=== PATIENT | female | born 1930 | race Caucasian/White ===

== ENCOUNTER 2019-05-22 09:35 | Observation (INO) | payer MEDICARE, BC ==
[2019-05-22] MEDS ORDERED: 1/2 NORMAL SALINE 1,000 ML IV ONE (10:00)
--- NOTE | 2019-05-22 10:07 | ER Document Report ---
ED Fall - General Chief Complaint: Fall Injury Stated Complaint: FALL Time Seen by Provider: 05/22/19 09:42 Notes: Patient found by her bed on the floor this morning. Family did not hear her fall, but thinks that is what happened because she is had about 3 falls over the past couple of weeks. Her only apparent injury from this episode is a very small cut to the lower lip. It does not require sutures. Family is concerned the patient may be dehydrated. Says her oral intake has been very poor lately. The patient has not been sick in any specific way recently. Patient had skin cancer removed from her left nose a couple of weeks ago leaving her with some bruising of her face. However, family notes slight redness in the right maxill bernardo region that is new. She had a fall a couple of weeks ago when she hit her right lower rib cage and has a hematoma in the right flank region that extends around towards the front of the right abdomen. Patient has a history of atrial fibrillation and is currently on Eliquis. Bedside monitoring currently shows sinus rhythm, not atrial fibrillation, with frequent PVCs. Patient has a chronic right knee problem for which she saw her primary care earlier in the week. They drained some fluid out of her knee and put some cortisone in the knee. Family says that the patient needs to have a total knee replacement, but they have been putting it off. TRAVEL OUTSIDE OF THE [place] 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 Son and daughter are here with the patient and provide ample historical review. CONSTITUTIONAL : Denies fever. EENT: Denies eye, ear, nose or mouth or throat pain or other symptoms. CARDIOVASCULAR: Denies chest pain. RESPIRATORY: Denies cough, chest congestion, or shortness of breath. GASTROINTESTINAL: Denies abdominal pain or nausea, vomiting, or diarrhea. GENITOURINARY: Denies difficulty or painful urinating, urinary frequency, blood in urine. MUSCULOSKELETAL: Denies back or neck pain. Right knee has small effusion palpable. Otherwise, denies joint pain or swelling. SKIN: Denies rash or skin lesions. Bruise from where she fell and hit the right lower flank region a couple of weeks ago. NEUROLOGICAL: See HPI. Denies headache. ALL OTHER SYSTEMS REVIEWED AND NEGATIVE. Physical Exam - Vital signs Vitals: Temp Resp 97.9 F 13 05/22/19 09:47 05/22/19 09:47 Interpretation: Normal Notes: PHYSICAL EXAMINATION: GENERAL: Well-appearing, in no acute distress. HEAD: Atraumatic, normocephalic. Has a small cut of the lower lip with a corresponding cut inside the lip. I am not sure if they communicate or just happened to be on either side of the lip. Not big enough to suture. EYES: Pupils equal round and reactive to light, extraocular movements intact. Faint dark bruise of the lateral aspect of the right eyebrow. Patient has some soft tissue swelling in the maxillary regions which the daughter says are secondary to where she had skin cancer removed a couple weeks ago. ENT: oropharynx clear without exudates. Moist mucous membranes. NECK: Normal range of motion, supple. LUNGS: Breath sounds clear and equal bilaterally. HEART: Regular rate and rhythm without murmurs. ABDOMEN: Soft, nontender. No guarding or rebound. No masses. BACK: No tenderness throughout entire back. Patient has a large (5 cm x 5 cm) firm hematoma in the right flank region with some discoloration of bruising extending in a linear fashion from the right flank to the right front of the abdomen. EXTREMITIES: Patient has a small palpable effusion of the right knee. It is not hot or red or anything suggesting infection. There is a tiny blue spot in the medial aspect of the right knee where patient may have had a needle aspiration and medications given. Otherwise, normal range of motion of joints without pain. NEUROLOGICAL: acts sleepy, but when she is awake, she seems to have normal speech. Patient is unable to walk, too sleepy and swollen right knee that is painful. Otherwise, grossly normal neurologic exam without deficits. PSYCH: Too somnolent to examine. SKIN: Warm, dry, no rashes. Right lower daniels where patient had a lesion that was irradiated and daughter says it was squamous cell cancer. Course - Re-evaluation Re-evalutation: 05/22/19 14:27 Work-up essentially negative. I do not know if this patient is having syncopal episodes, because this 1 this morning was not witnessed, or if she could be having falling episodes. Her EKG shows a sinus rhythm at this time with some frequent PVCs, and pairs and triplets. Patient does not have any evidence of an infectious process. I have spoken with the hospitalist to admit this patient for observation and she will be admitted to telemetry. - Vital Signs Vital signs: Temp Pulse Resp BP Pulse Ox 97.9 F 62 20 172/81 H 97 05/22/19 09:47 05/22/19 11:49 05/22/19 11:49 05/22/19 11:49 05/22/19 11:49 - Laboratory Result Diagrams: 05/22/19 10:56 05/22/19 10:56 Laboratory results interpreted by me: 05/22/19 05/22/19 05/22/19 10:13 10:56 10:56 Hgb 11.0 L Hct 34.7 L MCHC 31.7 L RDW 16.0 H Carbon Dioxide 32 H Anion Gap 3 L BUN 31 H Est GFR ( Amer) 52 L Est GFR (MDRD) Non-Af 43 L Total Protein 5.9 L Albumin 3.4 L Urine Blood SMALL H - Diagnostic Test Radiology reviewed: Image reviewed, Reports reviewed - CT head without any acute findings. No evidence of stroke. - EKG Interpretation by Me EKG shows normal: Sinus rhythm Rate: Normal Rhythm: PVC's Critical Care Note - Critical Care Note Total time excluding time spent on procedures (mins): 35 Discharge - Discharge Clinical Impression: Dementia, Fall, Syncope Condition: Stable Disposition: ADMITTED OBSERVATION Admitting Provider: day Unit Admitted: Telemetry
[2019-05-22 10:42] LABS: APPEARANCE,URINE CLEAR; BILIRUBIN,URINE NEGATIVE (NEGATIVE); COLOR,URINE YELLOW; GLUCOSE, URINE NEGATIVE (NEGATIVE); KETONES,URINE NEGATIVE (NEGATIVE); LEUKOCYTE ESTERASE,URINE NEGATIVE (NEGATIVE); NITRITE,URINE NEGATIVE (NEGATIVE); PROTEIN,URINE NEGATIVE (NEGATIVE); URINE SPECIFIC GRAVITY 1.014; UROBILINOGEN,URINE NEGATIVE mg/dL (<2.0)
--- NOTE | 2019-05-22 10:53 | RADIOLOGY REPORT (SQ) ---
EXAM DESCRIPTION: CT HEAD WITHOUT COMPLETED DATE/TIME: 05/22/2019 10:41 am REASON FOR STUDY: dementia, worsening mental statuw, fall COMPARISON: None. TECHNIQUE: Axial images acquired through the brain without intravenous contrast. Images reviewed wi th bone, brain and subdural windows. Additional sagittal and coronal reconstructions were generated. Images stored on PACS. All CT scanners at this facility use dose modulation, iterative reconstruction, and/or weight based d osing when appropriate to reduce radiation dose to as low as reasonably achievable (ALARA). [facility]: Dose Right [facility]: CareDose [facility]: Dose Right [facility]: Teradose 4D [facility]: Smart [employer] RADIATION DOSE: CT Rad equipment meets quality standard of care and radiation dose reduction techniq ues were employed. CTDIvol: 53.2 mGy. DLP: 1582 mGy-cm. mGy. LIMITATIONS: None. FINDINGS: VENTRICLES: Normal size and contour. CEREBRUM: No masses. No hemorrhage. No midline shift. No evidence for acute infarction. Few scatte red areas of low density in the white matter most likely chronic small vessel ischemic changes. CEREBELLUM: No masses. No hemorrhage. No alteration of density. No evidence for acute infarction. EXTRAAXIAL SPACES: No fluid collections. No masses. ORBITS AND GLOBE: No intra- or extraconal masses. Normal contour of globe without masses. CALVARIUM: No fracture. PARANASAL SINUSES: No fluid or mucosal thickening. SOFT TISSUES: No mass or hematoma. OTHER: No other significant finding. IMPRESSION: No acute intracranial pathology. EVIDENCE OF ACUTE STROKE: NO. COMMENT: Quality ID # [id number]: Final reports with documentation of one or more dose reduction techniques (e.g., Automated exposure control, adjustment of the mA and/or kV according to patient size, use of iterative reconstruction technique) TECHNICAL DOCUMENTATION: JOB ID: [id number] [employer]- All Rights Reserved Reading location - IP/workstation name: [email or web address]
[2019-05-22 11:12] LABS: ABSOLUTE BASOPHILS # (AUTO) 0.1 10^3/uL (0.0-0.2); ABSOLUTE EOSINOPHILS # (AUTO) 0.1 10^3/uL (0.0-0.6); ABSOLUTE LYMPHOCYTES (AUTO) 2.3 10^3/uL (0.5-4.7); ABSOLUTE MONOCYTES (AUTO) 0.8 10^3/uL (0.1-1.4); ABSOLUTE NEUT (AUTO) 5.6 10^3/uL (1.7-8.2); BASOPHILS % (AUTO) 0.7 % (0-2); EOSINOPHILS % (AUTO) 1.1 % (0-6); HEMATOCRIT 34.7 % (36.0-47.0); LYMPHOCYTES % (AUTO) 26.2 % (13-45); MEAN CORPUSCULAR HEMOGLOBIN 27.6 pg (27.0-33.4); MEAN CORPUSCULAR HGB CONC 31.7 g/dL (32.0-36.0); MEAN CORPUSCULAR VOLUME 87 fl (80-97); MONOCYTES % (AUTO) 8.8 % (3-13); PLATELET COUNT 199 10^3/uL (150-450); RED BLOOD COUNT 3.98 10^6/uL (3.72-5.28); SEGMENTED NEUTROPHILS % (AUTO) 63.2 % (42-78); TOTAL CELLS COUNTED % (AUTO) 100 %; WHITE BLOOD COUNT 8.9 10^3/uL (4.0-10.5)
[2019-05-22 11:27] LABS: INTERNATIONAL RATION (INR) 1.05; PROTHROMBIN TIME 13.7 SEC (11.4-15.4)
[2019-05-22 11:33] LABS: ALBUMIN 3.4 g/dL (3.5-5.0); ALKALINE PHOSPHATASE 80 U/L (38-126); ASPARTATE AMINO TRANSFERASE 22 U/L (14-36); BILIRUBIN,DIRECT 0.2 mg/dL (0.0-0.4); BILIRUBIN,TOTAL 0.3 mg/dL (0.2-1.3); BLOOD UREA NITROGEN 31 mg/dL (7-20); CALCIUM 8.6 mg/dL (8.4-10.2); CARBON DIOXIDE 32 mmol/L (22-30); CHLORIDE 105 mmol/L (98-107); GLUCOSE 86 mg/dL (75-110); POTASSIUM 4.6 mmol/L (3.6-5.0); TOTAL PROTEIN 5.9 g/dL (6.3-8.2)
[2019-05-22 11:40] LABS: ANION GAP 3 (5-19)
--- NOTE | 2019-05-22 13:39 | EKG REPORT ---
SEVERITY:- ABNORMAL ECG - SINUS RHYTHM PAIRED VENTRICULAR PREMATURE COMPLEXES : Confirmed by: Tierra Abrams MD 22-May-2019 13:38:53
[2019-05-22] MEDS ORDERED: ONDANSETRON 4 MG TAB.RAPDIS PO PRN (13:44)
[2019-05-22] MEDS ORDERED: ACETAMINOPHEN 325 MG TABLET PO PRN (13:44)
[2019-05-22] MEDS ORDERED: ONDANSETRON HCL INJ/PF 4 MG/2 ML SDV IV PRN (13:44)
[2019-05-22] MEDS: NORMAL SALINE 1000 ML 1,000 ML IV PRN (14:09)
--- NOTE | 2019-05-22 14:44 | PDOC H&P ---
History of Present Illness Admission Date/PCP: 05/22/19 13:05 History of Present Illness: NOAM SINGH is a 88 year old female who was seen in the emergency room frequent falls and syncope. Complete history is given by the daughter who is in the room patient reportedly fell yesterday morning while in the shower, and then fell again this morning while getting out of bed. According to the daughter her mother reached over to get something off the coffee table or the nightstand and she fell out of bed. Evidently the patient has been falling more often in the last 6 months and especially in the last few weeks. The daughter states that last night the patient was talking to herself for about an hour, and evidently having some sort of hallucinations. That may be due to medications as on Saturday she got a steroid injection into her knee last night also took some Benadryl. Patient has been living with her daughter for 2 years now. Patient does have a history of dementia in the past however family is concerned that she is falling more frequently now. 2 weeks ago she fell and hit her right lower back and has a large hematoma from that fall patient is on Eliquis as a result of atrial fib. When I spoke to the patient in the emergency room she was confused she thought she was in another town in [place] she thought she was at her parents house and she thought her daughter was her sister. 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 Past Surgical History Past Surgical History: Reports: Orthopedic Surgery - back Social History Smoking Status: Unknown if Ever Smoked Electronic Cigarette use?: No - Advance Directive Resuscitation Status: Do Not Resuscitate Family History Family History: Reviewed & Not Pertinent Parental Family History Reviewed: No Children Family History Reviewed: No Sibling(s) Family History Reviewed.: No Medication/Allergy Home Medications: Walker [Folding Walker] 1 each MC ASDIR PRN #1 each 05/19/15 Allergies/Adverse Reactions: No Known Allergies Allergy (Verified 05/18/15 22:01) Review of Systems Constitutional: ABSENT: chills, fever(s), headache(s), weight gain, weight loss Cardiovascular: ABSENT: chest pain, dyspnea on exertion, edema, orthropnea, palpitations Respiratory: ABSENT: cough, hemoptysis Gastrointestinal: ABSENT: abdominal pain, constipation, diarrhea, hematemesis, hematochezia, nausea, vomiting Neurological: PRESENT: confusion, memory loss, weakness, other - Current falls Psychiatric: ABSENT: anxiety, depression, homidical ideation, suicidal ideation Physical Exam Vital Signs: Temp Pulse Resp BP Pulse Ox 97.9 F 62 20 172/81 H 97 05/22/19 09:47 05/22/19 11:49 05/22/19 11:49 05/22/19 11:49 05/22/19 11:49 Intake & Output 05/21/19 05/22/19 05/23/19 06:59 06:59 06:59 Intake Total 1000 Balance 1000 Weight 66.81 kg General appearance: PRESENT: no acute distress, other - Patient is sleeping but arouses with loud voices patient is very confused does not know where she is or who we are. Patient does not recognize her daughter Mouth exam: PRESENT: other - She has a small puncture wound to her lower lip secondary to her fall Respiratory exam: PRESENT: clear to auscultation brandon. ABSENT: rales, rhonchi, wheezes Cardiovascular exam: PRESENT: RRR. ABSENT: diastolic murmur, rubs, systolic murmur Neurological exam: PRESENT: altered, other - Patient is not oriented to person place or time Psychiatric exam: PRESENT: appropriate affect, normal mood, other - Patient is pleasant when she wakes up however confused. ABSENT: homicidal ideation, suicidal ideation Skin exam: PRESENT: other - All abrasion to the lower lip Results Laboratory Results: 05/22/19 10:56 05/22/19 10:56 05/22/19 05/22/19 05/22/19 09:15 09:15 10:13 WBC Cancelled RBC Cancelled Hgb Cancelled Hct Cancelled MCV Cancelled MCH Cancelled MCHC Cancelled RDW Cancelled Plt Count Cancelled Seg Neutrophils % Cancelled Sodium Cancelled Potassium Cancelled Chloride Cancelled Carbon Dioxide Cancelled Anion Gap Cancelled BUN Cancelled Creatinine Cancelled Est GFR ( Amer) Cancelled Est GFR (Non-Af Amer) Cancelled Glucose Cancelled Calcium Cancelled Total Bilirubin Cancelled AST Cancelled Alkaline Phosphatase Cancelled Total Protein Cancelled Albumin Cancelled Urine Color YELLOW Urine Appearance CLEAR Urine pH 5.0 Ur Specific [place] 1.014 Urine Protein NEGATIVE Urine Glucose (UA) NEGATIVE Urine Ketones NEGATIVE Urine Blood SMALL H Urine Nitrite NEGATIVE Ur Leukocyte Esterase NEGATIVE Urine WBC (Auto) 1 Urine RBC (Auto) 8 05/22/19 05/22/19 10:56 10:56 WBC 8.9 RBC 3.98 Hgb 11.0 L Hct 34.7 L MCV 87 MCH 27.6 MCHC 31.7 L RDW 16.0 H Plt Count 199 Seg Neutrophils % 63.2 Sodium 140.1 Potassium 4.6 Chloride 105 Carbon Dioxide 32 H Anion Gap 3 L BUN 31 H Creatinine 1.18 Est GFR ( Amer) 52 L Est GFR (Non-Af Amer) Glucose 86 Calcium 8.6 Total Bilirubin 0.3 AST 22 Alkaline Phosphatase 80 Total Protein 5.9 L Albumin 3.4 L Urine Color Urine Appearance Urine pH Ur Specific [place] Urine Protein Urine Glucose (UA) Urine Ketones Urine Blood Urine Nitrite Ur Leukocyte Esterase Urine WBC (Auto) Urine RBC (Auto) 05/22/19 05/22/19 09:15 10:56 Troponin I Cancelled < 0.012 Impressions: Head CT 05/22/19 10:05 IMPRESSION: No acute intracranial pathology. EVIDENCE OF ACUTE STROKE: NO. Assessment and Plan - Diagnosis (1) Dementia Is this a current diagnosis for this admission?: Yes (2) Fall Is this a current diagnosis for this admission?: Yes (3) Syncope Is this a current diagnosis for this admission?: Yes (4) PVCs (premature ventricular contractions) Is this a current diagnosis for this admission?: Yes (5) Atrial fibrillation Is this a current diagnosis for this admission?: No - Plan Summary Summary: 05/22/2019 I have explained to the daughter that we may not be able to make a diagnosis as to why her mother is falling. To me it sounds to be an aging problem or microvascular ischemia dementia type problem. We will put her on telemetry and monitor her rhythm. Lab work.. Treat the patient well.. I think the behavior last night today as far as confusion is secondary to the steroids and the Benadryl, hopefully that will wear off some of the next 48 hours. Patient might benefit from an MRI and MRA of the brain as an outpatient. CT scan of the head shows no hydrocephalus or acute intracranial disease, urine is clear showing no signs of infection. Chest x-ray was not done in the ER so I will order a portable chest. Patient is a DNR. - Time Time Spent with patient: 35 or more minutes
--- NOTE | 2019-05-22 16:08 | RADIOLOGY REPORT (SQ) ---
EXAM DESCRIPTION: CHEST SINGLE VIEW COMPLETED DATE/TIME: 05/22/2019 3:57 pm REASON FOR STUDY: altered mental status COMPARISON: None. EXAM PARAMETERS: NUMBER OF VIEWS: One view. TECHNIQUE: Single frontal radiographic view of the chest acquired. RADIATION DOSE: NA LIMITATIONS: None. FINDINGS: LUNGS AND PLEURA: No opacities, masses or pneumothorax. No pleural effusion. MEDIASTINUM AND HILAR STRUCTURES: No masses. Contour normal. HEART AND VASCULAR STRUCTURES: Borderline enlarged cardiac silhouette. Aortic atherosclerosis. BONES: No acute findings. Degenerative changes at the shoulders. HARDWARE: None in the chest. OTHER: No other significant finding. IMPRESSION: No evidence of acute cardiopulmonary process. TECHNICAL DOCUMENTATION: JOB ID: [id number] [employer]- All Rights Reserved Reading location - IP/workstation name: [email or web address]
[2019-05-22] MEDS ORDERED: FAMOTIDINE 20 MG TABLET PO SCH (22:00)
[2019-05-22] MEDS ORDERED: (PENDING PHARMACY ID) (Diclofenac Sodium [Voltaren] 1 GM) TOP PRN (22:17)
[2019-05-22] MEDS ORDERED: MELATONIN 3 MG TABLET PO PRN (22:17)
[2019-05-22] MEDS ORDERED: DOFETILIDE 125 MCG CAPSULE ONE (22:56)
[2019-05-22] MEDS ORDERED: GALANTAMINE HBR 4 MG TABLET ONE (22:56)
[2019-05-22] MEDS: GALANTAMINE HBR 4 MG TABLET PO SCH (22:59)
[2019-05-22] MEDS: APIXABAN 2.5 MG TABLET PO SCH (22:59)
[2019-05-22] MEDS: DOFETILIDE 125 MCG CAPSULE PO SCH (22:59)
[2019-05-22] MEDS: FAMOTIDINE 20 MG TABLET PO SCH (23:00)
[2019-05-23] MEDS: OXYCODONE HCL IR 5 MG TABLET PO SCH ×5 (00:52→23:43)
[2019-05-23] MEDS: GABAPENTIN 300 MG CAPSULE PO SCH ×5 (00:52→23:43)
[2019-05-23] MEDS: METRONIDAZOLE 500 MG/NS RTU 500 MG/100 ML RTUPB IV SCH ×5 (00:55→23:44)
[2019-05-23] MEDS: HYDRALAZINE HCL INJ/PF 20 MG/1 ML SDV IV PRN ×2 (01:27→05:42)
[2019-05-23] MEDS: PANTOPRAZOLE SODIUM 40 MG TABLET.DR PO SCH ×2 (05:42→18:33)
[2019-05-23 06:48] LABS: ABSOLUTE BASOPHILS # (AUTO) 0.1 10^3/uL (0.0-0.2); ABSOLUTE EOSINOPHILS # (AUTO) 0.1 10^3/uL (0.0-0.6); ABSOLUTE LYMPHOCYTES (AUTO) 3.6 10^3/uL (0.5-4.7); ABSOLUTE NEUT (AUTO) 7.4 10^3/uL (1.7-8.2); EOSINOPHILS % (AUTO) 1.2 % (0-6); HEMATOCRIT 35.4 % (36.0-47.0); HEMOGLOBIN 11.3 g/dL (12.0-15.5); LYMPHOCYTES % (AUTO) 29.2 % (13-45); MEAN CORPUSCULAR HEMOGLOBIN 27.1 pg (27.0-33.4); MEAN CORPUSCULAR HGB CONC 31.9 g/dL (32.0-36.0); MEAN CORPUSCULAR VOLUME 85 fl (80-97); MONOCYTES % (AUTO) 8.2 % (3-13); PLATELET COUNT 200 10^3/uL (150-450); RED BLOOD COUNT 4.16 10^6/uL (3.72-5.28); RED CELL DISTRIBUTION WIDTH 15.6 % (11.5-14.0); SEGMENTED NEUTROPHILS % (AUTO) 60.4 % (42-78); TOTAL CELLS COUNTED % (AUTO) 100 %; WHITE BLOOD COUNT 12.3 10^3/uL (4.0-10.5)
[2019-05-23 07:16] LABS: ANION GAP 6 (5-19); BLOOD UREA NITROGEN 22 mg/dL (7-20); CALCIUM 8.8 mg/dL (8.4-10.2); CARBON DIOXIDE 30 mmol/L (22-30); CHLORIDE 102 mmol/L (98-107); GLUCOSE 98 mg/dL (75-110); POTASSIUM 4.4 mmol/L (3.6-5.0)
[2019-05-23] MEDS ORDERED: MORPHINE SULFATE 10 MG/ML INJ IV PRN (07:57)
[2019-05-23] MEDS ORDERED: DILTIAZEM HCL INJ 25 MG/5 ML VIAL ONE (08:24)
[2019-05-23] MEDS ORDERED: DILTIAZEM HCL INJ 25 MG/5 ML VIAL IV ONE (09:00)
[2019-05-23] MEDS: DOCUSATE SODIUM 100 MG CAPSULE PO SCH (09:31)
[2019-05-23] MEDS: DULOXETINE HCL 30 MG CAPSULE.DR PO SCH (09:31)
[2019-05-23] MEDS: APIXABAN 2.5 MG TABLET PO SCH ×2 (09:31→21:16)
[2019-05-23] MEDS: METOPROLOL SUCCINATE 25 MG TAB.SR.24H PO SCH (09:31)
--- NOTE | 2019-05-23 09:47 | PDOC PROGRESS REPORT ---
Subjective Progress Note for:: 05/23/19 Subjective:: 05/23/2019 evidently last night the family changed her from a DNR to full code, however they are unsure what her status should be. I talked him about quality of life and so forth, chronic pain, etc.. We will keep her out of full code for now She has become more tachycardic's morning up into the 150s, with multiple PVCs or V. tach. Patient has a past medical history of atrial fib and is followed by Dr. Santoro. Actually this morning her heart rate was in the mid 60s and low 90s. Cardiology we will see the patient for this complaint Throughout the family thinks now that the patient has been taking Percocet without them knowing it. Now wonder if this is why she is falling so much. She is been on pain medicine for multiple years currently oxycodone 15 mg every 6 hours, and evidently she has some Percocet as well. We will continue the work-up for syncope. I x-rayed her pelvis and hips at the request of the family because they think that she may have fractured on with her falls. Reason For Visit: DEMENTIA,FALL,SYNCOPE Physical Exam Vital Signs: Temp Pulse Resp BP Pulse Ox 98.1 F 94 18 148/76 H 100 05/23/19 07:26 05/23/19 07:26 05/23/19 07:26 05/23/19 07:26 05/23/19 07:26 Intake & Output 05/22/19 05/23/19 05/24/19 06:59 06:59 06:59 Intake Total 1200 Output Total 1875 Balance -675 Weight 72.8 kg General appearance: PRESENT: mild distress, other - Patient is moaning out in pain complaining of right hip pain, and then she falls asleep Respiratory exam: PRESENT: clear to auscultation brandon. ABSENT: rales, rhonchi, wheezes Cardiovascular exam: PRESENT: tachycardia Neurological exam: PRESENT: altered, other - Patient goes back and forth between moaning and groaning in pain and being lethargic Psychiatric exam: PRESENT: agitated, anxious Results Laboratory Results: 05/23/19 06:24 05/23/19 06:24 05/22/19 05/22/19 05/22/19 09:15 09:15 10:13 WBC Cancelled RBC Cancelled Hgb Cancelled Hct Cancelled MCV Cancelled MCH Cancelled MCHC Cancelled RDW Cancelled Plt Count Cancelled Seg Neutrophils % Cancelled Sodium Cancelled Potassium Cancelled Chloride Cancelled Carbon Dioxide Cancelled Anion Gap Cancelled BUN Cancelled Creatinine Cancelled Est GFR ( Amer) Cancelled Est GFR (Non-Af Amer) Cancelled Glucose Cancelled Calcium Cancelled Phosphorus Magnesium Total Bilirubin Cancelled AST Cancelled Alkaline Phosphatase Cancelled Total Protein Cancelled Albumin Cancelled TSH Urine Color YELLOW Urine Appearance CLEAR Urine pH 5.0 Ur Specific [place] 1.014 Urine Protein NEGATIVE Urine Glucose (UA) NEGATIVE Urine Ketones NEGATIVE Urine Blood SMALL H Urine Nitrite NEGATIVE Ur Leukocyte Esterase NEGATIVE Urine WBC (Auto) 1 Urine RBC (Auto) 8 05/22/19 05/22/19 05/22/19 10:56 10:56 10:56 WBC 8.9 RBC 3.98 Hgb 11.0 L Hct 34.7 L MCV 87 MCH 27.6 MCHC 31.7 L RDW 16.0 H Plt Count 199 Seg Neutrophils % 63.2 Sodium 140.1 Potassium 4.6 Chloride 105 Carbon Dioxide 32 H Anion Gap 3 L BUN 31 H Creatinine 1.18 Est GFR ( Amer) 52 L Est GFR (Non-Af Amer) Glucose 86 Calcium 8.6 Phosphorus Magnesium Total Bilirubin 0.3 AST 22 Alkaline Phosphatase 80 Total Protein 5.9 L Albumin 3.4 L TSH 1.97 Urine Color Urine Appearance Urine pH Ur Specific [place] Urine Protein Urine Glucose (UA) Urine Ketones Urine Blood Urine Nitrite Ur Leukocyte Esterase Urine WBC (Auto) Urine RBC (Auto) 05/23/19 05/23/19 05/23/19 06:24 06:24 06:24 WBC 12.3 H RBC 4.16 Hgb 11.3 L Hct 35.4 L MCV 85 MCH 27.1 MCHC 31.9 L RDW 15.6 H Plt Count 200 Seg Neutrophils % 60.4 Sodium 138.2 Potassium 4.4 Chloride 102 Carbon Dioxide 30 Anion Gap 6 BUN 22 H Creatinine 0.96 Est GFR ( Amer) > 60 Est GFR (Non-Af Amer) Glucose 98 Calcium 8.8 Phosphorus 5.0 H Magnesium 1.7 Total Bilirubin AST Alkaline Phosphatase Total Protein Albumin TSH Urine Color Urine Appearance Urine pH Ur Specific [place] Urine Protein Urine Glucose (UA) Urine Ketones Urine Blood Urine Nitrite Ur Leukocyte Esterase Urine WBC (Auto) Urine RBC (Auto) 05/22/19 05/22/19 05/22/19 09:15 10:56 10:56 Creatine Kinase 208 H Troponin I Cancelled < 0.012 Impressions: Chest X-Ray 05/22/19 00:00 IMPRESSION: No evidence of acute cardiopulmonary process. Head CT 05/22/19 10:05 IMPRESSION: No acute intracranial pathology. EVIDENCE OF ACUTE STROKE: NO. Assessment and Plan - Diagnosis (1) Dementia Is this a current diagnosis for this admission?: Yes (2) Fall Is this a current diagnosis for this admission?: Yes (3) Syncope Is this a current diagnosis for this admission?: Yes (4) PVCs (premature ventricular contractions) Is this a current diagnosis for this admission?: Yes (5) Atrial fibrillation Is this a current diagnosis for this admission?: No - Plan Summary Summary: 05/22/2019 I have explained to the daughter that we may not be able to make a diagnosis as to why her mother is falling. To me it sounds to be an aging problem or microvascular ischemia dementia type problem. We will put her on telemetry and monitor her rhythm. Lab work.. Treat the patient well.. I think the behavior last night today as far as confusion is secondary to the steroids and the Benadryl, hopefully that will wear off some of the next 48 hours. Patient might benefit from an MRI and MRA of the brain as an outpatient. CT scan of the head shows no hydrocephalus or acute intracranial disease, urine is clear showing no signs of infection. Chest x-ray was not done in the ER so I will order a portable chest. Patient is a DNR. 05/23/2019 as stated earlier family has now changed her back to full code patient is having some runs of either PVCs or V. tach, although she is not symptomatic. We will x-ray her pelvis and hips looking for fractures secondary to falls and will continue the syncope work-up now that the pharmacy has reconciled her medications they were added last night. - Time Time Spent with patient: 35 or more minutes - I talked to both the son and daughter again this morning about CODE STATUS and about the possibilities of what is causing the patient to fall, and her quality of life, and her chronic p ain and medications
--- NOTE | 2019-05-23 09:49 | RADIOLOGY REPORT (SQ) ---
EXAM DESCRIPTION: HIP BILATERAL COMPLETED DATE/TIME: 05/23/2019 9:11 am REASON FOR STUDY: hip pain, right worse than left, falls COMPARISON: None. NUMBER OF VIEWS: Two views TECHNIQUE: AP pelvis and additional frog-leg view of both hips. LIMITATIONS: None. FINDINGS: MINERALIZATION: Normal. HIPS: Degenerative changes in both hips with joint space narrowing, sclerosis, and osteophytes. No a cute fracture or dislocation. No worrisome bone lesions. PELVIS AND SACRUM: No acute fracture or dislocation. No worrisome bone lesions. PUBIS AND ISCHIUM: No acute fracture. LOWER LUMBAR SPINE: Degenerative changes. SOFT TISSUES: No findings. OTHER: No other significant finding. IMPRESSION: DEGENERATIVE CHANGES IN THE HIPS. NO ACUTE FINDINGS. TECHNICAL DOCUMENTATION: JOB ID: [id number]- All Rights Reserved Reading location - IP/workstation name: [email or web address]
[2019-05-23] MEDS ORDERED: BENAZEPRIL HCL 20 MG TABLET PO SCH (10:00)
[2019-05-23] MEDS ORDERED: DOCUSATE SODIUM 100 MG CAPSULE PO SCH (10:00)
[2019-05-23] MEDS: GENTAMICIN SULFATE 0.1% OINTMENT 15 GM TP SCH (12:03)
[2019-05-23] MEDS: GALANTAMINE HBR 4 MG TABLET PO SCH ×2 (12:04→21:16)
[2019-05-23] MEDS: DOFETILIDE 125 MCG CAPSULE PO SCH ×2 (12:04→21:16)
[2019-05-23] MEDS: NORMAL SALINE 1000 ML 1,000 ML IV PRN ×2 (12:12→21:16)
[2019-05-23] MEDS ORDERED: DILTIAZEM HCL/D5W 125 MG/125 ML RTUINJ IV PRN (14:02)
--- NOTE | 2019-05-23 16:12 | RADIOLOGY REPORT (SQ) ---
EXAM DESCRIPTION: MRI HEAD WITHOUT COMPLETED DATE/TIME: 05/23/2019 3:51 pm REASON FOR STUDY: syncope, falls COMPARISON: CT dated 05/22/2019. TECHNIQUE: Multiplanar imaging includes non-contrasted T1, T2, FLAIR, and diffusion with ADC map seq uences. Images stored on PACS. LIMITATIONS: None. FINDINGS: ANATOMY: No anomalies. Normal vascular flow voids. Pituitary fossa normal. CSF SPACES: Normal in size and contour. No hemorrhage. CEREBRUM: Sulci and gyri normal in size and contour. Normal white matter signal on FLAIR imaging. No evidence of hemorrhage, mass, or extraaxial fluid collection. POSTERIOR FOSSA: No signal alteration. No hemorrhage. No edema, masses or mass effect. Internal karla tory canals, cerebello-pontine angles, mastoids normal. DIFFUSION IMAGING: Negative for acute or sub-acute infarction. ORBITS: No masses. Globes normal. PARANASAL SINUSES: No fluid levels. Mucosa normal. OTHER: No other significant finding. IMPRESSION: NORMAL MRI OF THE BRAIN WITHOUT INTRAVENOUS GADOLINIUM CONTRAST. EVIDENCE OF ACUTE STROKE: NO. TECHNICAL DOCUMENTATION: JOB ID: [id number]- All Rights Reserved Reading location - IP/workstation name: [email or web address]
--- NOTE | 2019-05-23 16:14 | RADIOLOGY REPORT (SQ) ---
EXAM DESCRIPTION: MRA HEAD WITHOUT COMPLETED DATE/TIME: 05/23/2019 3:51 pm REASON FOR STUDY: syncope, falls COMPARISON: None. TECHNIQUE: Axial 3-D [id number] acquisition imaging performed through the brain in the area of t he [place]. Images reformatted using 3-D MIPS. LIMITATIONS: Motion artifact. FINDINGS: SOURCE IMAGES: No unexpected findings on source images. No large masses. 3-D MIP: No aneurysm. No occlusions. No significant stenosis. OTHER: No other significant finding. IMPRESSION: LIMITED STUDY DUE TO MOTION ARTIFACT. NO OCCLUDED VESSELS. NO HIGH-GRADE STENOSES ALTH OUGH STUDY IS LIMITED. TECHNICAL DOCUMENTATION: JOB ID: [id number] [employer]- All Rights Reserved Reading location - IP/workstation name: [email or web address]
--- NOTE | 2019-05-23 19:23 | EKG REPORT ---
SEVERITY:- ABNORMAL ECG - ATRIAL FIBRILLATION RUN OF VENTRICULAR PREMATURE COMPLEXES PROBABLE ANTEROSEPTAL INFARCT, AGE INDETERM : Confirmed by: Tierra Abrams MD 23-May-2019 19:23:08
[2019-05-23] MEDS: FAMOTIDINE 20 MG TABLET PO SCH (21:16)
--- NOTE | 2019-05-23 21:17 | PDOC CONSULTATION ---
Consultation-Blank Consultation: CARDIOLOGY CONSULTATION by Dr. Tierra Abrams on 05/23/2019. Patient seen at 10 AM on 05/23/2019. REASON FOR CONSULTATION: Patient with history of A. fib noted to have short runs of wide-complex salvos of V. tach versus atrial fibrillation. CONSULT REQUESTING PHYSICIAN: Mr. Luis Mccall, [facility]. HISTORY OF PRESENT ILLNESS: Patient is a 88-year-old female with known history of hypertension, atrial fibrillation and significant dementia who recently been having falls. The patient presents in sinus rhythm. Although it is mentioned in the chart that the patient has syncope, on speaking to the patient's daughter the patient has never lost consciousness. She has been very unsteady in her gait and keeps falling multiple times. Of note the patient is also on Eliquis and not one such fall caused her to have a hematoma. But there is been no major intracerebral bleeds. There is no history of coronary artery disease, or chest pain. Note unable to get a history from the patient due to the patient's significant dementia. There is one EKG which Shows what looks like a run of APCs versus atrial flutter/fibrillation with aberrancy. 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 There is no history of diabetes mellitus. No history of coronary artery disease or ME as per the daughter. No history of thyroid disease. 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 She did get a steroid injection to the right knee. The patient is on good doses of narcotic analgesics. 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 The patient's daughter is a surrogate healthcare decision maker. Family History Family History: Reviewed & Not Pertinent Parental Family History Reviewed: No Children Family History Reviewed: No Sibling(s) Family History Reviewed.: No Medication/Allergy Home Medications:Apixaban [Eliquis 2.5 mg Tablet] 2.5 mg PO Q12 05/22/19 Benazepril HCl [Lotensin 20 mg Tablet] 10 mg PO Q2D 05/22/19 Diclofenac Sodium [Voltaren] 1 gm TOP QIDP PRN 05/22/19 Docusate Sodium [Colace 100 mg Capsule] 100 mg PO DAILY 05/22/19 Dofetilide [Tikosyn 125 Mcg Capsule] 125 mcg PO Q12 05/22/19 Duloxetine HCl [Cymbalta] 60 mg PO DAILY 05/22/19 Gabapentin [Neurontin 300 mg Capsule] 300 mg PO Q6 05/22/19 Galantamine HBr [Razadyne] 4 mg PO Q12 05/22/19 Melatonin [Melatonin 3 mg Tablet] 3 tab PO HSP PRN 05/22/19 Metoprolol Succinate [Toprol Xl 25 mg Tab.sr] 25 mg PO DAILY 05/22/19 Omeprazole 40 mg PO Q12 05/22/19 Oxycodone HCl 15 mg PO Q6 05/22/19 Simvastatin [Zocor 20 mg Tablet] 20 mg PO QHS 05/22/19 Allergies/Adverse Reactions: No Known Allergies Allergy Review of Systems: Unable to obtain from the patient since she has dementia. As per the daughter there is no history of fever chills or rigors. No symptoms suggestive of urinary tract infection. History of frequent falls but no syncope. No history of chest pains or chest discomfort there is no focal weaknesses. There is no seizures. There is no cough or wheezing or sputum production. Current Medications Generic Name Dose Route Start Last Admin Trade Name Freq PRN Reason Stop Dose Admin Acetaminophen 650 mg 05/22/19 13:44 Tylenol 325 Mg Tablet PO 06/21/19 13:43 Q4HP PRN FOR HEADACHE OR PAIN Apixaban 2.5 mg 05/22/19 22:00 05/23/19 09:31 Eliquis 2.5 Mg Tablet PO 06/21/19 21:59 2.5 mg Q12 ANA Administration Benazepril HCl 10 mg 05/23/19 10:00 05/23/19 12:02 Lotensin 20 Mg Tablet PO 06/22/19 09:59 10 mg Q2D ANA Administration Docusate Sodium 100 mg 05/23/19 10:00 05/23/19 09:31 Colace 100 Mg Capsule PO 06/22/19 09:59 100 mg DAILY ANA Administration Dofetilide 125 mcg 05/22/19 22:00 05/23/19 12:04 Tikosyn 125 Mcg Capsule PO 06/21/19 21:59 125 mcg Q12 ANA Administration Duloxetine HCl 60 mg 05/23/19 10:00 05/23/19 09:31 Cymbalta 30 Mg Capsule.Dr PO 06/22/19 09:59 60 mg DAILY ANA Administration Famotidine 20 mg 05/22/19 22:00 05/22/19 23:00 Pepcid 20 Mg Tablet PO 06/21/19 21:59 20 mg QHS ANA Administration Gabapentin 300 mg 05/23/19 00:00 05/23/19 18:33 Neurontin 300 Mg Capsule PO 06/22/19 00:00 300 mg Q6 ANA Administration Galantamine Hydrobromide 4 mg 05/22/19 22:00 05/23/19 12:04 Reminyl 4 Mg Tablet PO 06/21/19 21:59 4 mg Q12 ANA Administration Gentamicin Sulfate 1 applic 05/23/19 10:00 05/23/19 12:03 Garamycin 0.1% Ointment 15 Gm TP 06/22/19 09:59 1 applic DAILY ANA Administration Hydralazine HCl 10 mg 05/22/19 23:58 05/23/19 05:42 Apresoline Inj/Pf 20 Mg/1 Ml Sdv IV 06/21/19 23:57 10 mg Q4HP PRN Administration SBP > 160 OR DBP > 100 Sodium Chloride 1,000 mls @ 100 mls/hr 05/22/19 13:44 05/23/19 12:12 Nacl 0.9% 1000 Ml Iv Soln IV 06/21/19 13:43 100 mls/hr CONTINUOUS PRN Administration THIS MED IS NOT "PRN" Metronidazole 500 mg in 100 mls @ 100 mls/hr 05/23/19 00:00 05/23/19 20:54 Flagyl Rtu 500 Mg/Ns 100ml Premix IV 05/30/19 00:00 Infused Q6 ANA Infusion Diltiazem HCl 125 mg in 125 mls @ 0 mls/hr 05/23/19 14:02 Cardizem Rtu Inj 125 Mg-D5w 125 Ml Premix IV 06/22/19 14:01 CONTINUOUS PRN THIS MED IS NOT "PRN" Protocol Titrate Melatonin 9 mg 05/22/19 22:17 Melatonin 3 Mg Tablet PO 06/21/19 22:16 HSP PRN SLEEP OR INSOMNIA Metoprolol Succinate 25 mg 05/23/19 10:00 05/23/19 09:31 Toprol Xl 25 Mg Tab.Sr PO 06/22/19 09:59 25 mg DAILY ANA Administration Ondansetron HCl 4 mg 05/22/19 13:44 Zofran Odt 4 Mg Tablet PO 06/21/19 13:43 Q8HP PRN FOR NAUSEA/VOMITING Ondansetron HCl 4 mg 05/22/19 13:44 Zofran Inj/Pf 4 Mg/2 Ml Sdv IV 06/21/19 13:43 Q8HP PRN FOR NAUSEA/VOMITING Oxycodone HCl 15 mg 05/23/19 00:00 05/23/19 18:32 Oxy-Ir 5 Mg Tablet PO 05/30/19 00:00 15 mg Q6 ANA Administration Pantoprazole Sodium 40 mg 05/23/19 06:00 05/23/19 18:[address] Tablet PO 06/22/19 05:59 40 mg Q12A ANA Administration Patient Own Medication 1 gm 05/22/19 22:17 Diclofenac Sodium [Voltaren] TOP QIDP PRN JOINT PAIN Simvastatin 20 mg 05/23/19 22:00 Zocor 10 Mg Tablet PO 06/22/19 21:59 QHS ANA Discontinued Medications Generic Name Dose Route Start Last Admin Trade Name Freq PRN Reason Stop Dose Admin Diltiazem HCl Confirm 05/23/19 08:24 05/23/19 08:29 Cardizem Inj 25 Mg/5 Ml Vial Administered 05/23/19 08:25 10 mg Dose Administration 25 mg .ROUTE .STK-MED ONE Diltiazem HCl 10 mg 05/23/19 09:00 05/23/19 09:41 Cardizem Inj 25 Mg/5 Ml Vial IV 05/23/19 09:01 Not Given NOW ONE Docusate Sodium 100 mg 05/23/19 10:00 Colace 100 Mg Capsule PO 06/22/19 09:59 DAILY ANA Dofetilide Confirm 05/22/19 22:56 05/22/19 23:31 Tikosyn 125 Mcg Capsule Administered 05/22/19 22:57 Not Given Dose 125 mcg .ROUTE .STK-MED ONE Galantamine Hydrobromide Confirm 05/22/19 22:56 05/22/19 23:31 Reminyl 4 Mg Tablet Administered 05/22/19 22:57 Not Given Dose 4 mg .ROUTE .STK-MED ONE Sodium Chloride 1,000 mls @ 125 mls/hr 05/22/19 10:00 05/22/19 14:08 Nacl 0.45% 1000 Ml Iv Soln IV 05/22/19 17:59 Infused NOW ONE Infusion Morphine Sulfate 2 mg 05/23/19 07:57 05/23/19 08:36 Morphine 10 Mg/Ml Inj IV 05/30/19 07:56 2 mg Q2HP PRN Administration PAIN PHYSICAL EXAMINATION: The patient is a frail build. Appears older than his stated age. The patient is pleasantly confused. Selected Entries 05/23/19 10:57 Temperature 97.9 F Temperature Oral Source Pulse Rate 68 Respiratory 18 Rate Blood Pressure 139/83 H Blood Pressure 101 Mean BP Location Right Arm BP Position Supine O2 Sat by Pulse 99 Oximetry Oxygen Flow 2.00 Rate Oxygen Delivery Nasal Cannula Method HEENT is negative. Neck is supple. There is no JVD. Carotids are equal there is no bruit. There is no lymphadenopathy. There is no goiter. There is no accessory muscle respiration use. Trachea central. LUNGS: Is clear to auscultation percussion without any rhonchi rales or wheezing. HEART: S1-S2 is heard S1 is of normal intensity. There is no S3 gallop. There is no S4 gallop. Systolic murmur left sternal border and the apex there is no rub. ABDOMEN: Soft. Nontender there is no hepatospleno megaly. Bowel sounds well heard. EXTREMITY is: Femorals are diminished. There is no femoral bruits. Leg pulses are diminished. There is no DVT or cellulitis. There is no calf tenderness. There is no cyanosis or clubbing. VOICE PROFESSOR: The patient is confused, and slightly drowsy but moves all 4 extremities. PSYCHIATRIC exam the patient does not appear to be agitated or anxious. ATRIAL FIBRILLATION [RVPC] . RUN OF VENTRICULAR PREMATURE COMPLEXES [ventricular brittanie] versus atrial fibrillation/flutter with aberrancy. [AMI21] . PROBABLE ANTEROSEPTAL INFARCT, AGE INDETERM versus lead placement. Labs- Entire Visit 05/22/19 05/22/19 05/22/19 09:15 09:15 09:15 WBC Cancelled RBC Cancelled Hgb Cancelled Hct Cancelled MCV Cancelled MCH Cancelled MCHC Cancelled RDW Cancelled Plt Count Cancelled Lymph % (Auto) Cancelled [place] % (Auto) Cancelled Eos % (Auto) Cancelled Baso % (Auto) Cancelled Absolute Neuts (auto) Cancelled Absolute Lymphs (auto) Cancelled Absolute Monos (auto) Cancelled Absolute Eos (auto) Cancelled Absolute Basos (auto) Cancelled Seg Neutrophils % Cancelled Platelet Estimate Cancelled PT INR INR (Anticoag Therapy) Sodium Cancelled Potassium Cancelled Chloride Cancelled Carbon Dioxide Cancelled Anion Gap Cancelled BUN Cancelled Creatinine Cancelled Est GFR ( Amer) Cancelled Est GFR (Non-Af Amer) Cancelled Est GFR (MDRD) Non-Af Cancelled Glucose Cancelled Calcium Cancelled Phosphorus Magnesium Total Bilirubin Cancelled Direct Bilirubin Cancelled Neonat Total Bilirubin Cancelled Neonat Direct Bilirubin Cancelled Neonat Indirect Bili Cancelled AST Cancelled ALT Cancelled Alkaline Phosphatase Cancelled Creatine Kinase Troponin I Cancelled Total Protein Cancelled Albumin Cancelled EGFR Cancelled TSH Urine Color Urine Appearance Urine pH Ur Specific Flom Urine Protein Urine Glucose (UA) Urine Ketones Urine Blood Urine Nitrite Urine Bilirubin Urine Urobilinogen Ur Leukocyte Esterase Urine WBC (Auto) Urine RBC (Auto) U Hyaline Cast (Auto) Urine Mucus (Auto) Urine Ascorbic Acid Slides for Path Review Cancelled 05/22/19 05/22/19 05/22/19 09:15 10:13 10:56 WBC 8.9 RBC 3.98 Hgb 11.0 L Hct 34.7 L MCV 87 MCH 27.6 MCHC 31.7 L RDW 16.0 H Plt Count 199 Lymph % (Auto) 26.2 [place] % (Auto) 8.8 Eos % (Auto) 1.1 Baso % (Auto) 0.7 Absolute Neuts (auto) 5.6 Absolute Lymphs (auto) 2.3 Absolute Monos (auto) 0.8 Absolute Eos (auto) 0.1 Absolute Basos (auto) 0.1 Seg Neutrophils % 63.2 Platelet Estimate PT Cancelled INR Cancelled INR (Anticoag Therapy) Cancelled Sodium Potassium Chloride Carbon Dioxide Anion Gap BUN Creatinine Est GFR ( Amer) Est GFR (Non-Af Amer) Est GFR (MDRD) Non-Af Glucose Calcium Phosphorus Magnesium Total Bilirubin Direct Bilirubin Neonat Total Bilirubin Neonat Direct Bilirubin Neonat Indirect Bili AST ALT Alkaline Phosphatase Creatine Kinase Troponin I Total Protein Albumin EGFR TSH Urine Color YELLOW Urine Appearance CLEAR Urine pH 5.0 Ur Specific Flom 1.014 Urine Protein NEGATIVE Urine Glucose (UA) NEGATIVE Urine Ketones NEGATIVE Urine Blood SMALL H Urine Nitrite NEGATIVE Urine Bilirubin NEGATIVE Urine Urobilinogen NEGATIVE Ur Leukocyte Esterase NEGATIVE Urine WBC (Auto) 1 Urine RBC (Auto) 8 U Hyaline Cast (Auto) 1 Urine Mucus (Auto) RARE Urine Ascorbic Acid NEGATIVE Slides for Path Review 05/22/19 05/22/19 05/22/19 10:56 10:56 10:56 WBC RBC Hgb Hct MCV MCH MCHC RDW Plt Count Lymph % (Auto) [place] % (Auto) Eos % (Auto) Baso % (Auto) Absolute Neuts (auto) Absolute Lymphs (auto) Absolute Monos (auto) Absolute Eos (auto) Absolute Basos (auto) Seg Neutrophils % Platelet Estimate PT 13.7 INR 1.05 INR (Anticoag Therapy) Sodium 140.1 Potassium 4.6 Chloride 105 Carbon Dioxide 32 H Anion Gap 3 L BUN 31 H Creatinine 1.18 Est GFR ( Amer) 52 L Est GFR (Non-Af Amer) Est GFR (MDRD) Non-Af 43 L Glucose 86 Calcium 8.6 Phosphorus Magnesium Total Bilirubin 0.3 Direct Bilirubin 0.2 Neonat Total Bilirubin Not Reportable Neonat Direct Bilirubin Not Reportable Neonat Indirect Bili Not Reportable AST 22 ALT 11 Alkaline Phosphatase 80 Creatine Kinase Troponin I < 0.012 Total Protein 5.9 L Albumin 3.4 L EGFR TSH Urine Color Urine Appearance Urine pH Ur Specific Flom Urine Protein Urine Glucose (UA) Urine Ketones Urine Blood Urine Nitrite Urine Bilirubin Urine Urobilinogen Ur Leukocyte Esterase Urine WBC (Auto) Urine RBC (Auto) U Hyaline Cast (Auto) Urine Mucus (Auto) Urine Ascorbic Acid Slides for Path Review 05/22/19 05/22/19 05/23/19 10:56 10:56 06:24 WBC 12.3 H RBC 4.16 Hgb 11.3 L Hct 35.4 L MCV 85 MCH 27.1 MCHC 31.9 L RDW 15.6 H Plt Count 200 Lymph % (Auto) 29.2 [place] % (Auto) 8.2 Eos % (Auto) 1.2 Baso % (Auto) 1.0 Absolute Neuts (auto) 7.4 Absolute Lymphs (auto) 3.6 Absolute Monos (auto) 1.0 Absolute Eos (auto) 0.1 Absolute Basos (auto) 0.1 Seg Neutrophils % 60.4 Platelet Estimate PT INR INR (Anticoag Therapy) Sodium Potassium Chloride Carbon Dioxide Anion Gap BUN Creatinine Est GFR ( Amer) Est GFR (Non-Af Amer) Est GFR (MDRD) Non-Af Glucose Calcium Phosphorus Magnesium Total Bilirubin Direct Bilirubin Neonat Total Bilirubin Neonat Direct Bilirubin Neonat Indirect Bili AST ALT Alkaline Phosphatase Creatine Kinase 208 H Troponin I Total Protein Albumin EGFR TSH 1.97 Urine Color Urine Appearance Urine pH Ur Specific Flom Urine Protein Urine Glucose (UA) Urine Ketones Urine Blood Urine Nitrite Urine Bilirubin Urine Urobilinogen Ur Leukocyte Esterase Urine WBC (Auto) Urine RBC (Auto) U Hyaline Cast (Auto) Urine Mucus (Auto) Urine Ascorbic Acid Slides for Path Review 05/23/19 05/23/19 06:24 06:24 WBC RBC Hgb Hct MCV MCH MCHC RDW Plt Count Lymph % (Auto) [place] % (Auto) Eos % (Auto) Baso % (Auto) Absolute Neuts (auto) Absolute Lymphs (auto) Absolute Monos (auto) Absolute Eos (auto) Absolute Basos (auto) Seg Neutrophils % Platelet Estimate PT INR INR (Anticoag Therapy) Sodium 138.2 Potassium 4.4 Chloride 102 Carbon Dioxide 30 Anion Gap 6 BUN 22 H Creatinine 0.96 Est GFR ( Amer) > 60 Est GFR (Non-Af Amer) Est GFR (MDRD) Non-Af 55 L Glucose 98 Calcium 8.8 Phosphorus 5.0 H Magnesium 1.7 Total Bilirubin Direct Bilirubin Neonat Total Bilirubin Neonat Direct Bilirubin Neonat Indirect Bili AST ALT Alkaline Phosphatase Creatine Kinase Troponin I Total Protein Albumin EGFR TSH Urine Color Urine Appearance Urine pH Ur Specific Flom Urine Protein Urine Glucose (UA) Urine Ketones Urine Blood Urine Nitrite Urine Bilirubin Urine Urobilinogen Ur Leukocyte Esterase Urine WBC (Auto) Urine RBC (Auto) U Hyaline Cast (Auto) Urine Mucus (Auto) Urine Ascorbic Acid Slides for Path Review Chest X-Ray 05/22/19 00:00 IMPRESSION: No evidence of acute cardiopulmonary process. Head CT 05/22/19 10:05 IMPRESSION: No acute intracranial pathology. EVIDENCE OF ACUTE STROKE: NO. Brain MRI with MRA 05/23/19 00:00 IMPRESSION: LIMITED STUDY DUE TO MOTION ARTIFACT. NO OCCLUDED VESSELS. NO HIGH-GRADE STENOSES ALTHOUGH STUDY IS LIMITED. Head MRI 05/23/19 00:00 IMPRESSION: NORMAL MRI OF THE BRAIN WITHOUT INTRAVENOUS GADOLINIUM CONTRAST. EVIDENCE OF ACUTE STROKE: NO. Hip X-Ray 05/23/19 00:00 IMPRESSION: DEGENERATIVE CHANGES IN THE HIPS. NO ACUTE FINDINGS. IMPRESSION/RECOMMENDATION: 1. No evidence of recurrence of atrial fibrillation this admission. Note patient has a history of atrial fibrillation. The monitor strips suggest chaotic atrial mechanism, but the patient has no lung pathology. Would place the patient on a small dose of intravenous IV Cardizem infusion, since the patient does have pain which is not very well controlled at present and hence there is a propensity for the patient had a rapid upper rapid atrial rhythms. Also would revisit the patient being on Eliquis in view of the frequent falls. We will discuss with the patient's daughter after discussions with attending provider; 2. Frequent falls? Probably this is advanced Alzheimer's 3. Advanced dementia. 4. Hypertension: Blood pressures well controlled. MEDICATIONS reviewed. Management plan and medication discussed with attending provider on the case. Discussed with the patient's daughter. Medical decision making is a moderate to high complexity. 60 minutes spent on this patient more than 50% of time spent in direct patient care. Will follow.
[2019-05-23] MEDS ORDERED: SIMVASTATIN 10 MG TABLET PO SCH (22:00)
[2019-05-24] MEDS: HYDRALAZINE HCL INJ/PF 20 MG/1 ML SDV IV PRN (04:08)
[2019-05-24] MEDS: PANTOPRAZOLE SODIUM 40 MG TABLET.DR PO SCH (05:12)
[2019-05-24] MEDS: OXYCODONE HCL IR 5 MG TABLET PO SCH ×2 (05:12→12:38)
[2019-05-24] MEDS: GABAPENTIN 300 MG CAPSULE PO SCH ×2 (05:12→12:38)
[2019-05-24] MEDS: METRONIDAZOLE 500 MG/NS RTU 500 MG/100 ML RTUPB IV SCH (05:12)
--- NOTE | 2019-05-24 08:51 | EKG REPORT ---
SEVERITY:- ABNORMAL ECG - ATRIAL FIBRILLATION RUN OF VENTRICULAR PREMATURE COMPLEXES VS RUN OF ATRIAL FIB WITH ABHERRANCY BORDERLINE RIGHT AXIS DEVIATION : Confirmed by: Tierra Abrams MD 24-May-2019 08:50:48
[2019-05-24 09:14] VITALS: BP 142/88
--- NOTE | 2019-05-24 09:29 | PDOC DISCHARGE SUMMARY ---
Impression - Admit/DC Date/PCP Admission Date/Primary Care Provider: 05/22/19 13:05 Discharge Date: 05/24/19 - Discharge Diagnosis (1) Dementia Is this a current diagnosis for this admission?: Yes (2) Fall Is this a current diagnosis for this admission?: Yes (3) Syncope Is this a current diagnosis for this admission?: No (4) PVCs (premature ventricular contractions) Is this a current diagnosis for this admission?: Yes (5) Atrial fibrillation Is this a current diagnosis for this admission?: Yes (6) Chronic pain Is this a current diagnosis for this admission?: Yes - Assessment Summary: 05/22/2019 I have explained to the daughter that we may not be able to make a diagnosis as to why her mother is falling. To me it sounds to be an aging problem or microvascular ischemia dementia type problem. We will put her on telemetry and monitor her rhythm. Lab work.. Treat the patient well.. I think the behavior last night today as far as confusion is secondary to the steroids and the Benadryl, hopefully that will wear off some of the next 48 hours. Patient might benefit from an MRI and MRA of the brain as an outpatient. CT scan of the head shows no hydrocephalus or acute intracranial disease, urine is clear showing no signs of infection. Chest x-ray was not done in the ER so I will order a portable chest. Patient is a DNR. 05/23/2019 as stated earlier family has now changed her back to full code patient is having some runs of either PVCs or V. tach, although she is not symptomatic. We will x-ray her pelvis and hips looking for fractures secondary to falls and will continue the syncope work-up now that the pharmacy has reconciled her medications they were added last night. 05/24/2019 Patient was admitted to the hospital for frequent falls as well as altered mental status. Turns out patient may have been taking some extra Percocet that she had and family was unaware of this.. This in combination with her steroids and Benadryl that night was probably what caused her to fall out of bed. Patient has had a chronic pain problem for about 40 years with her back and spine, sees pain management on a regular monthly basis. MRI MRI of the brain was negative here in the hospital. Patient was seen by cardiology and felt that this was mostly atrial aberrancy, and not V. tach. Patient was ordered a Cardizem drip but prior to starting the drip her rate went from 120 down to 60, she is basically been in the 60s to 80s since then. He did require a dose of IV Cardizem but no Cardizem drip back on her regular heart meds Tikosyn 125 mcg and Toprol XL 25 mg.. Family needs to talk to her primary care provider about the risk benefits of Eliquis and her frequent falls. Family needs to talk to pain management about her regimen of medication. I did write for Ultram 50 mg number 20 tablets to use for breakthrough pain and alternate with her OxyContin. Unable to get carotid Doppler studies done because of the weekend and and also were unable to do echocardiogram these need to be done as an outpatient. Patient's primary problem seems to be more pain management as opposed to logic and/or cardiac syncope or weakness.. Patient is a DNR which I agree with. Patient may need fdc placement soon talk to the family about this. Patient is medically stable for discharge - Additional Information Resuscitation Status: Do Not Resuscitate Discharge Diet: As Tolerated Discharge Activity: Balance Activity w/Rest Referrals: JULIUS VERDE MD [NO LOCAL MD] - Follow up as needed Prescriptions: Tramadol HCl [Ultram 50 mg Tablet] 50 mg PO Q6A #20 tablet Home Medications: Apixaban [Eliquis 2.5 mg Tablet] 2.5 mg PO Q12 05/22/19 Benazepril HCl [Lotensin 20 mg Tablet] 10 mg PO Q2D 05/22/19 Diclofenac Sodium [Voltaren] 1 gm TOP QIDP PRN 05/22/19 Docusate Sodium [Colace 100 mg Capsule] 100 mg PO DAILY 05/22/19 Dofetilide [Tikosyn 125 Mcg Capsule] 125 mcg PO Q12 05/22/19 Duloxetine HCl [Cymbalta] 60 mg PO DAILY 05/22/19 Gabapentin [Neurontin 300 mg Capsule] 300 mg PO Q6 05/22/19 Galantamine HBr [Razadyne] 4 mg PO Q12 05/22/19 Melatonin [Melatonin 3 mg Tablet] 3 tab PO HSP PRN 05/22/19 Metoprolol Succinate [Toprol Xl 25 mg Tab.sr] 25 mg PO DAILY 05/22/19 Omeprazole 40 mg PO Q12 05/22/19 Oxycodone HCl 15 mg PO Q6 05/22/19 Apixaban [Eliquis 2.5 mg Tablet] 2.5 mg PO Q12 tablet 05/24/19 Benazepril HCl [Lotensin 20 mg Tablet] 10 mg PO Q2D tablet 05/24/19 Diclofenac Sodium [Voltaren] 1 gm TOP QIDP PRN 05/24/19 Docusate Sodium [Colace 100 mg Capsule] 100 mg PO DAILY capsule 05/24/19 Dofetilide [Tikosyn 125 Mcg Capsule] 125 mcg PO Q12 capsule 05/24/19 Duloxetine HCl [Cymbalta 30 mg Capsule.] 60 mg PO DAILY capsule.dr 05/24/19 Gabapentin [Neurontin 300 mg Capsule] 300 mg PO Q6 capsule 05/24/19 Galantamine Hydrobromide [Reminyl 4 mg Tablet] 4 mg PO Q12 tablet 05/24/19 Gentamicin Sulfate [Garamycin 0.1% Ointment 15 gm] 1 applic TP DAILY tube 05/24/19 Melatonin [Melatonin 3 mg Tablet] 9 mg PO HSP PRN tablet 05/24/19 Oxycodone HCl [Oxy-Ir 5 mg Tablet] 15 mg PO Q6 tablet 05/24/19 Simvastatin [Zocor 10 mg Tablet] 20 mg PO QHS tablet 05/24/19 Tramadol HCl [Ultram 50 mg Tablet] 50 mg PO Q6A #20 tablet 05/24/19 History of Present Illiness History of Present Illness: NOAM SINGH is a 88 year old female who was seen in the emergency room frequent falls and syncope. Complete history is given by the daughter who is in the room patient reportedly fell yesterday morning while in the shower, and then fell again this morning while getting out of bed. According to the daughter her mother reached over to get something off the coffee table or the nightstand and she fell out of bed. Evidently the patient has been falling more often in the last 6 months and especially in the last few weeks. The daughter states that last night the patient was talking to herself for about an hour, and evidently having some sort of hallucinations. That may be due to medications as on Saturday she got a steroid injection into her knee last night also took some Benadryl. Patient has been living with her daughter for 2 years now. Patient does have a history of dementia in the past however family is concerned that she is falling more frequently now. 2 weeks ago she fell and hit her right lower back and has a large hematoma from that fall patient is on Eliquis as a result of atrial fib. When I spoke to the patient in the emergency room she was confused she thought she was in another town in [place] she thought she was at her parents house and she thought her daughter was her sister. The daughter states that this behavior and confusion is very unusual for her Physical Exam Vital Signs: Temp Pulse Resp BP Pulse Ox 98.1 F 75 18 142/88 H 99 05/24/19 08:32 05/24/19 08:32 05/24/19 08:32 05/24/19 08:32 05/24/19 08:32 Intake & Output 05/23/19 05/24/19 05/25/19 06:59 06:59 06:59 Intake Total 2200 2439 Output Total 1875 3875 Balance 325 -1436 Weight 72.8 kg 70.1 kg Results Laboratory Results: WBC 12.3 10^3/uL (4.0-10.5) H 05/23/19 06:24 RBC 4.16 10^6/uL (3.72-5.28) 05/23/19 06:24 Hgb 11.3 g/dL (12.0-15.5) L 05/23/19 06:24 Hct 35.4 % (36.0-47.0) L 05/23/19 06:24 MCV 85 fl (80-97) 05/23/19 06:24 MCH 27.1 pg (27.0-33.4) 05/23/19 06:24 MCHC 31.9 g/dL (32.0-36.0) L 05/23/19 06:24 RDW 15.6 % (11.5-14.0) H 05/23/19 06:24 Plt Count 200 10^3/uL (150-450) 05/23/19 06:24 Lymph % (Auto) 29.2 % (13-45) 05/23/19 06:24 [place] % (Auto) 8.2 % (3-13) 05/23/19 06:24 Eos % (Auto) 1.2 % (0-6) 05/23/19 06:24 Baso % (Auto) 1.0 % (0-2) 05/23/19 06:24 Absolute Neuts (auto) 7.4 10^3/uL (1.7-8.2) 05/23/19 06:24 Absolute Lymphs (auto) 3.6 10^3/uL (0.5-4.7) 05/23/19 06:24 Absolute Monos (auto) 1.0 10^3/uL (0.1-1.4) 05/23/19 06:24 Absolute Eos (auto) 0.1 10^3/uL (0.0-0.6) 05/23/19 06:24 Absolute Basos (auto) 0.1 10^3/uL (0.0-0.2) 05/23/19 06:24 Seg Neutrophils % 60.4 % (42-78) 05/23/19 06:24 Platelet Estimate Cancelled 05/22/19 09:15 PT 13.7 SEC (11.4-15.4) 05/22/19 10:56 INR 1.05 05/22/19 10:56 INR (Anticoag Therapy) Cancelled 05/22/19 09:15 Sodium 138.2 mmol/L (137-145) 05/23/19 06:24 Potassium 4.4 mmol/L (3.6-5.0) 05/23/19 06:24 Chloride 102 mmol/L (98-107) 05/23/19 06:24 Carbon Dioxide 30 mmol/L (22-30) 05/23/19 06:24 Anion Gap 6 (5-19) 05/23/19 06:24 BUN 22 mg/dL (7-20) H 05/23/19 06:24 Creatinine 0.96 mg/dL (0.52-1.25) 05/23/19 06:24 Est GFR ( Amer) > 60 (>60) 05/23/19 06:24 Est GFR (Non-Af Amer) Cancelled 05/22/19 09:15 Est GFR (MDRD) Non-Af 55 (>60) L 05/23/19 06:24 Glucose 98 mg/dL (75-110) 05/23/19 06:24 Calcium 8.8 mg/dL (8.4-10.2) 05/23/19 06:24 Phosphorus 5.0 mg/dL (2.5-4.5) H 05/23/19 06:24 Magnesium 1.7 mg/dL (1.6-2.3) 05/23/19 06:24 Total Bilirubin 0.3 mg/dL (0.2-1.3) 05/22/19 10:56 Direct Bilirubin 0.2 mg/dL (0.0-0.4) 05/22/19 10:56 Neonat Total Bilirubin Not Reportable 05/22/19 10:56 Neonat Direct Bilirubin Not Reportable 05/22/19 10:56 Neonat Indirect Bili Not Reportable 05/22/19 10:56 AST 22 U/L (14-36) 05/22/19 10:56 ALT 11 U/L (<35) 05/22/19 10:56 Alkaline Phosphatase 80 U/L (38-126) 05/22/19 10:56 Creatine Kinase 208 U/L (30-135) H 05/22/19 10:56 Troponin I < 0.012 ng/mL 05/22/19 10:56 Total Protein 5.9 g/dL (6.3-8.2) L 05/22/19 10:56 Albumin 3.4 g/dL (3.5-5.0) L 05/22/19 10:56 EGFR Cancelled 05/22/19 09:15 TSH 1.97 uIU/mL (0.47-4.68) 05/22/19 10:56 Urine Color YELLOW 05/22/19 10:13 Urine Appearance CLEAR 05/22/19 10:13 Urine pH 5.0 (5.0-9.0) 05/22/19 10:13 Ur Specific [place] 1.014 05/22/19 10:13 Urine Protein NEGATIVE mg/dL (NEGATIVE) 05/22/19 10:13 Urine Glucose (UA) NEGATIVE mg/dL (NEGATIVE) 05/22/19 10:13 Urine Ketones NEGATIVE mg/dL (NEGATIVE) 05/22/19 10:13 Urine Blood SMALL (NEGATIVE) H 05/22/19 10:13 Urine Nitrite NEGATIVE (NEGATIVE) 05/22/19 10:13 Urine Bilirubin NEGATIVE (NEGATIVE) 05/22/19 10:13 Urine Urobilinogen NEGATIVE mg/dL (<2.0) 05/22/19 10:13 Ur Leukocyte Esterase NEGATIVE (NEGATIVE) 05/22/19 10:13 Urine WBC (Auto) 1 /HPF 05/22/19 10:13 Urine RBC (Auto) 8 /HPF 05/22/19 10:13 U Hyaline Cast (Auto) 1 /LPF 05/22/19 10:13 Urine Mucus (Auto) RARE /LPF 05/22/19 10:13 Urine Ascorbic Acid NEGATIVE (NEGATIVE) 05/22/19 10:13 Slides for Path Review Cancelled 05/22/19 09:15 05/22/19 05/22/19 09:15 10:56 Troponin I Cancelled < 0.012 Impressions: Chest X-Ray 05/22/19 00:00 IMPRESSION: No evidence of acute cardiopulmonary process. Head CT 05/22/19 10:05 IMPRESSION: No acute intracranial pathology. EVIDENCE OF ACUTE STROKE: NO. Brain MRI with MRA 05/23/19 00:00 IMPRESSION: LIMITED STUDY DUE TO MOTION ARTIFACT. NO OCCLUDED VESSELS. NO HIGH-GRADE STENOSES ALTHOUGH STUDY IS LIMITED. Head MRI 05/23/19 00:00 IMPRESSION: NORMAL MRI OF THE BRAIN WITHOUT INTRAVENOUS GADOLINIUM CONTRAST. EVIDENCE OF ACUTE STROKE: NO. Hip X-Ray 05/23/19 00:00 IMPRESSION: DEGENERATIVE CHANGES IN THE HIPS. NO ACUTE FINDINGS. Stroke Is this a Stroke Patient?: No Acute Heart Failure - Is this a Heart Failure Patient?: No
[2019-05-24] MEDS ORDERED: TRAMADOL HCL 50 MG TABLET PO SCH (09:30)
[2019-05-24] MEDS: GENTAMICIN SULFATE 0.1% OINTMENT 15 GM TP SCH (10:34)
[2019-05-24] MEDS: METOPROLOL SUCCINATE 25 MG TAB.SR.24H PO SCH (10:34)
[2019-05-24] MEDS: APIXABAN 2.5 MG TABLET PO SCH (10:34)
[2019-05-24] MEDS: DULOXETINE HCL 30 MG CAPSULE.DR PO SCH (10:34)
[2019-05-24] MEDS: DOFETILIDE 125 MCG CAPSULE PO SCH (10:34)
[2019-05-24] MEDS: DOCUSATE SODIUM 100 MG CAPSULE PO SCH (10:35)
[2019-05-24] MEDS: GALANTAMINE HBR 4 MG TABLET PO SCH (10:35)
== END 2019-05-24 12:53 | disposition home or self-care (01) ==
LOC: ER 09:35 → EH 13:05 → 3W 20:14
PROVIDERS: ADMIT Internal Medicine; ATTEND Internal Medicine
DX: F03.90 Unspecified dementia, unspecified severity, without behavioral disturbance, psychotic disturbance, mood disturbance, and anxiety (principal); R55 Syncope and collapse; S01.531A Puncture wound without foreign body of lip, initial encounter; W18.2XXA Fall in (into) shower or empty bathtub, initial encounter; Y92.002 Bathroom of unspecified non-institutional (private) residence as the place of occurrence of the external cause; W06.XXXA Fall from bed, initial encounter; Y92.003 Bedroom of unspecified non-institutional (private) residence as the place of occurrence of the external cause; S30.0XXA Contusion of lower back and pelvis, initial encounter; S30.1XXA Contusion of abdominal wall, initial encounter; I49.3 Ventricular premature depolarization; I48.91 Unspecified atrial fibrillation; G89.29 Other chronic pain; M17.11 Unilateral primary osteoarthritis, right knee; R29.6 Repeated falls; R53.1 Weakness; R41.0 Disorientation, unspecified; M25.551 Pain in right hip; R53.83 Other fatigue; R45.1 Restlessness and agitation; M25.461 Effusion, right knee; Z91.81 History of falling; I10 Essential (primary) hypertension; K21.9 Gastro-esophageal reflux disease without esophagitis; Z66 Do not resuscitate; Z79.02 Long term (current) use of antithrombotics/antiplatelets; Z79.899 Other long term (current) drug therapy; Z92.3 Personal history of irradiation; Z85.828 Personal history of other malignant neoplasm of skin; Z79.891 Long term (current) use of opiate analgesic; Z98.890 Other specified postprocedural states
CPT/HCPCS: 93005 ×3; 99291; 96360; 96361; 36415 ×2; 87040; 87086; 82550; 83735; 84100; 84443; 85025 ×2; 85610; 87077; 80048; 80053; 81001; 84484; 87186; 70551; 70544; 71045; 73522; 70450; 93010 ×3; G0378 ×2; A9270 ×25; J3490 ×6; J0360 ×2; J2270; J7030 ×2